=== PATIENT | female | born 1950 | race Asian ===

== ENCOUNTER 2017-11-03 06:54 | Day surgery (SDC) | payer BC, OTHER ==
--- NOTE | 2017-11-02 10:57 | HP ---
Past Medical History - Admission Chief Complaint: Postmenopausal Bleeding History of Present Illness: 67 year old who had an episode of vaginal spotting in September 2017 for 3 days. An endometrial biopsy was performed revealing atrophic endometrium. Patient has been on Tamoxifen and was to complete 10 years of treatment in October. Telephone conversation with her oncologist, Advised her to stop Tamoxifen. A pelvic ultrasound performed on 10/19/17 revealed an anterior uterus 6 by 7 by 4 with an endometrium measuring 17.89 mm heterogenous with cystic appearance. A pap smear done at that time was negative for malignancy. However she has started to spot again. Denies cramping or heavy bleeding. 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 Home Medications - Allergies Allergies/Adverse Reactions: Allergies Allergy/AdvReac Type Severity Reaction Status Date / Time No Known Drug Allergies Allergy Verified 11/07/14 06:54 - Home Medications Home Medications: Ambulatory Orders Rosuvastatin Calcium [Crestor] 20 mg PO DAILY 11/06/14 Family Disease History - Family Disease History Family Disease History: CA: Sister (Ovarian cancer Braca negative) Review of Systems - Review of Systems Constitutional: reports: No Symptoms Neck: reports: No Symptoms Cardiovascular: reports: No Symptoms Respiratory: reports: No Symptoms Gastrointestinal: reports: No Symptoms Genitourinary: reports: No Symptoms Musculoskeletal: reports: No Symptoms Integumentary: reports: No Symptoms Neurological: reports: No Symptoms Physical Exam-[employer]NER Constitutional: Yes: Well Nourished, No Distress, Calm Eyes: Yes: PERRL HENT: Yes: WNL Neck: Yes: WNL, Supple, Trachea Midline Cardiovascular: Yes: Regular Rate and Rhythm Respiratory: Yes: Regular, CTA Bilaterally Gastrointestinal: Yes: WNL, Normal Bowel Sounds, Soft ...Rectal Exam: Yes: WNL Pelvis: Yes: WNL External Genitalia: Yes: Normal Internal Exam Deferred: Yes Vaginal Exam: Yes: Normal Cervix: Yes: Normal Uterus: Yes: Normal, Freely Moveable, Anteverted Adnexa: Normal: Bilateral Breast(s): Yes: WNL (Right mastectomy scar. Left no masses) Musculoskeletal: Yes: WNL Extremities: Yes: WNL Edema: No Psychiatric: Yes: WNL Assessment/Plan Postmenopausal bleeding Recurrent vaginal spotting Tmoxifen use for 10 years Hx of Breast cancer Stable thickened endometrium Plan: D and C with Hysteroscopy 11/03/17
[2017-11-03 07:39] VITALS: BMI 18.3
--- NOTE | 2017-11-03 08:46 | HP ---
History & Physical Update - History History: Change (see notes) (Saw Dr. Hanson oncologist 11/02/17, Tamoxifen stopped will be having follow up every 4 m [facility].)
[2017-11-03] MEDS ORDERED: PROPOFOL 20 ML ONE (09:18)
[2017-11-03] MEDS ORDERED: DEXAMETHASONE SOD PHOSPHATE 4 MG/1 ML VIAL ONE (09:18)
[2017-11-03] MEDS ORDERED: KETOROLAC TROMETHAMINE 30 MG/1 ML VIAL ONE (09:18)
[2017-11-03] MEDS ORDERED: LIDOCAINE HCL/PF 2% SDV 5ML VIAL ONE (09:18)
[2017-11-03] MEDS ORDERED: PROMETHAZINE HCL 25 MG/1 ML VIAL IVPB PRN (10:09)
[2017-11-03] MEDS ORDERED: ONDANSETRON 4 MG/2 ML VIAL IVPUSH PRN (10:09)
[2017-11-03] MEDS ORDERED: oxyCODONE HCL 5 MG TABLET PO PRN (10:09)
[2017-11-03] MEDS ORDERED: LACTATED RINGERS SOLUTION 1,000 ML IV SCH (10:15)
--- NOTE | 2017-11-04 06:48 | OP ---
DATE OF OPERATION: 11/03/2017 PREOPERATIVE DIAGNOSIS: Postmenopausal bleeding, tamoxifen use, history of breast cancer. POSTOPERATIVE DIAGNOSIS: Postmenopausal bleeding, tamoxifen use, history of breast cancer, plus endometrial polyps. SURGEON: Quentin White MD ANESTHESIA: General. ANESTHESIOLOGIST: Avi Das MD BLOOD LOSS: 10 mL. DRAINS: None. PROCEDURE: Under general anesthesia, the patient was placed in dorsal lithotomy position, prepped and draped in the usual sterile manner. Pelvic examination was performed revealing the uterus that was anterior, mobile, normal adnexa bilaterally. A weighted speculum was inserted in the vagina. The anterior lip of the cervix was grasped with a sharp-tooth tenaculum. The uterus sounded to 7 cm. The cervical os was then dilated to allow a 5-mm hysteroscope to be inserted with visualization of the uterine cavity with saline as the distending medium. The uterine cavity was visualized. There was present a prominent endometrial polyp, smooth, mobile, with a small base. That was visualized. With these findings noted, hysteroscope was removed. The cervical canal was dilated. A small polyp was inserted into the uterine cavity. The polyp was grasped and it was twisted and removed. The uterine cavity was then curetted. Hysteroscope was then replaced back into the uterine cavity. No remaining polyps were seen, and patient was then brought to the recovery room in satisfactory condition. QUENTIN WHITE M.D. [id number]
[2017-11-07 10:50] VITALS: BP 119/70; PULSE 72; TEMP 98.1
--- NOTE | 2017-11-09 15:31 | PATH ---
Surgical Pathology Report Patient Name: JUAN MIGUEL JOE [facility]. Rec. #: [id number] /Age/Gender: 1950 (Age: 67) / F Account: [id number] Location: [facility] SURGICAL Taken: 11/03/2017 Received: 11/03/2017 Reported: 11/09/2017 Physicians: Quentin Mari M.D. Specimen(s) Received ENDOMETRIAL CONTENTS & POLYP Clinical History Postmenopausal bleeding, spotting history, tamoxifen use x10 years Previous surgery: D&C x2, polyp Endometrial BX, 10/16/17, hypertrophy Final Diagnosis ENDOMETRIAL CONTENTS AND POLYPS, DILATION AND CURETTAGE: FRAGMENTS OF ENDOMETRIAL POLYP WITH PAPILLARY SYNCYTIAL AND DEGENERATIVE CHANGES. SCANT BENIGN CERVICAL TISSUE. SEE COMMENT. Comment: The polyp shows areas suggestive of focal infarct and degenerative changes. There are aggregates of detached/degenerated epithelium within stroma, likely artifactual. Immunohistochemical workup was undertaken in view of the prior history of breast carcinoma. Immunohistochemical stains performed at [place], [place] ([id number]) and interpreted at [facility] show that breast markers including: GCDFP-15, RACH-3, and Mammaglobin are negative. CK20 is negative. The endometrial glands, detached, and degenerated epithelium are positive for CK-7, AE1/3, Hague-8, p16, and ER. P53 shows wild type staining. Overall findings favor reactive and degenerative changes likely secondary to focal infarct in a benign polyp. Suggest clinical correlation. Electronically Signed Lynn Arndt M.D. Gross Description Received in formalin labeled "endometrial contents and polyp" is a 3 x 1.5 x 1 cm pink-nunes polypoid soft tissue admixed with multiple pink-nunes hemorrhagic/mucoid tissue which measures 0.7 x 0.5 x 0.2 cm in aggregate. The entire specimen is submitted in 2 cassettes as follows: 1-serially sectioned polyp, 2- remainder of tissue aggregate. [facility]/11/03/2017 [place]/11/03/2017
== END 2017-11-03 15:09 | disposition home or self-care (01) ==
LOC: JASU-SURG 06:54
PROVIDERS: ATTEND Obstetrics & Gynecology
PROC: 0UJD8ZZ Inspection of Uterus and Cervix, Via Natural or Artificial Opening Endoscopic (ICD-10-PCS; 2017-11-03)
PROC: 0UB97ZX Excision of Uterus, Via Natural or Artificial Opening, Diagnostic (ICD-10-PCS; principal; 2017-11-03 08:30)
PROC: 0UDB7ZX Extraction of Endometrium, Via Natural or Artificial Opening, Diagnostic (ICD-10-PCS; 2017-11-03 08:30)
DX: N95.0 Postmenopausal bleeding (principal); N84.0 Polyp of corpus uteri; Z79.810 Long term (current) use of selective estrogen receptor modulators (SERMs); Z85.3 Personal history of malignant neoplasm of breast
CPT/HCPCS: 88305-TC; 94760

== ENCOUNTER 2021-09-02 04:18 | Day surgery (SDC) | payer BC, OTHER ==
[2021-09-01 08:39] VITALS: BMI 20.5
[2021-09-02 10:44] VITALS: TEMP 98
[2021-09-02 10:45] VITALS: RESP 18
[2021-09-02 11:53] VITALS: BP 140/71; PULSE 51
== END 2021-09-02 11:43 | disposition home or self-care (01) ==
LOC: JASU-ENDO 04:18
PROVIDERS: ATTEND Internal Medicine Gastroenterology
PROC: 0DB78ZX Excision of Stomach, Pylorus, Via Natural or Artificial Opening Endoscopic, Diagnostic (ICD-10-PCS; 2021-09-02)
PROC: 0DB98ZX Excision of Duodenum, Via Natural or Artificial Opening Endoscopic, Diagnostic (ICD-10-PCS; principal; 2021-09-02 10:00)
DX: K29.50 Unspecified chronic gastritis without bleeding (principal)
CPT/HCPCS: 88305-TC; 88342-TC

== ENCOUNTER 2023-12-15 04:56 | Day surgery (SDC) | payer BC, OTHER ==
[2023-12-15 09:02] VITALS: BMI 21.5
[2023-12-15 09:53] VITALS: TEMP 97.9
[2023-12-15 10:29] VITALS: RESP 18
[2023-12-15 10:37] VITALS: BP 118/62; PULSE 61
== END 2023-12-15 10:37 | disposition home or self-care (01) ==
LOC: JASU-ENDO 04:56
PROVIDERS: ATTEND Internal Medicine Gastroenterology
PROC: 0DB78ZX Excision of Stomach, Pylorus, Via Natural or Artificial Opening Endoscopic, Diagnostic (ICD-10-PCS; 2023-12-15)
PROC: 0DBN8ZX Excision of Sigmoid Colon, Via Natural or Artificial Opening Endoscopic, Diagnostic (ICD-10-PCS; principal; 2023-12-15 11:00)
DX: Z12.11 Encounter for screening for malignant neoplasm of colon (principal); K63.5 Polyp of colon; K64.8 Other hemorrhoids; Z86.0100 Personal history of colon polyps, unspecified; K29.50 Unspecified chronic gastritis without bleeding; K31.A19 Gastric intestinal metaplasia without dysplasia, unspecified site
CPT/HCPCS: 88305-TC; 88342-TC